=== PATIENT | male | born 1990 | race Two or more races ===

== ENCOUNTER 2023-02-13 23:55 | Outpatient (CLI) | payer BC, SELFPAY | END 2023-02-13 23:56 | disposition home or self-care (01) | PROVIDERS: Visit Provider Family Medicine | DX: R55 Syncope and collapse (principal) | CPT/HCPCS: A0425; A0427 ==

== ENCOUNTER 2023-02-14 00:34 | Emergency (ER) | payer BC, SELFPAY ==
[2023-02-14 00:41] VITALS: BP 107/87; PULSE 104; RESP 18; TEMP 36.6; O2SAT 94
--- NOTE | 2023-02-14 00:51 | ED_ITS ---
HPI - General Adult General Chief complaint: Arrhythmia/Palpitations Stated complaint: SVT Time Seen by Provider: 02/14/23 00:40 History of Present Illness HPI narrative: 32-year-old man presenting to the emergency department after having had what looks to been episode of supraventricular tachycardia diagnosed by EMS the seen and treated with adenosine. He is a long-helper/driver. This evening was finishing his cigarette had rolled over onto his right side he says and then started to feel hardening in his chest and increasing pain gesturing up to his left clavicle. This is a familiar symptom. It sounds as though has had a rhythm issue once upon a time. He notes that a physician in his home [place] in [facility] suggested that he had electrical problem. Looks to have been given bisoprolol 5 mg. He was actually seen a year ago in [place], where he currently lives, after an episode and says he was to continue I believe this bisoprolol for a week. He took 5 days only. He took those 2 remaining tabs this evening with no change in his symptoms. He was feeling more lightheaded and short of breath as he was trying to walk only a couple steps 3 steps at a time he felt he could manage. Workup in [place] after 4 days in the hospital showed him to have nothing wrong with his heart. Today he says is only the 2nd time he is heard anything about electricity in his heart. Does not drink alcohol. He says he stays well-hydrated drinking 6 L of water a day Related Data Home Medications Medication Instructions Recorded Confirmed bisoprolol fumarate .ROUTE 02/14/23 Previous Rx's Medication Instructions Recorded verapamil 120 mg tablet,extended 120 mg PO DAILY #30 tabs 02/14/23 release Allergies Allergy/AdvReac Type Severity Reaction Status Date / Time No Known Drug Allergies Allergy Verified 02/14/23 01:36 Review of Systems Status of ROS: Reports: 6 or more systems reviewed and unremarkable except as noted in History and below PFSH PFS Social History Smoking Status: Current every day smoker What tobacco products do you use: cigarettes Do you use any of these nicotine containing products: None Second hand tobacco smoke exposure: No How often do you have a drink containing alcohol: never AUDIT-C Alcohol total score: 0 Non-prescribed substance use: denies use service: No Exam Narrative: Exam Narrative: Generally pleasant. Animated. Breathing easily. Lungs are clear. Looks to be in a normal sinus rhythm. Mildly tachycardic. Regular rhythm. Smells of cigarette smoke. Extremities are without edema. He is well-perfused. Abdomen is full soft nontender. Const: Vital Signs, click to edit/add: Vital Signs - 24 hr 02/14/23 00:41 02/14/23 01:30 02/14/23 02:00 Temperature 97.8 F Pulse Rate [Right Pulse Oximeter] 104 H 103 H 95 Respiratory Rate 18 Blood Pressure [Le ft Upper Arm] 107/87 111/87 110/88 Pulse Oximetry 94 96 96 Oxygen Delivery Me thod Room Air Room Air Room Air Documenting provider has reviewed patient's vital signs: yes Course Vital Signs Vital signs: Initial Vital Signs Temperature 97.8 F 02/14/23 00:41 Temperature Source Temporal Artery Scan 02/14/23 00:41 Pulse Rate 104 H 02/14/23 00:41 Pulse Rhythm Regular 02/14/23 00:41 Respiratory Rate 18 02/14/23 00:41 Blood Pressure 107/87 02/14/23 00:41 Blood Pressure Mean 93 02/14/23 00:41 Blood Pressure Position Semi-Fowlers 02/14/23 00:41 Pulse Oximetry 94 02/14/23 00:41 Oxygen Delivery Method Room Air 02/14/23 00:41 Vital Signs Temperature 97.8 F 02/14/23 00:41 Pulse Rate 104 H 02/14/23 00:41 Respiratory Rate 18 02/14/23 00:41 Blood Pressure 107/87 02/14/23 00:41 Pulse Oximetry 94 02/14/23 00:41 Oxygen Delivery Method Room Air 02/14/23 00:41 Temperature 97.8 F 02/14/23 00:41 Pulse Rate 96 02/14/23 03:00 Respiratory Rate 18 02/14/23 00:41 Blood Pressure 107/79 02/14/23 03:00 Pulse Oximetry 96 02/14/23 03:00 Oxygen Delivery Method Room Air 02/14/23 03:00 Medications Administered Medications: Discontinued Medications Generic Name Dose Route Start Last Admin Trade Name Freq PRN Reason Stop Dose Admin Verapamil HCl 120 mg 02/14/23 02:22 02/14/23 03:14 Verapamil Hcl 240 Mg Er Tablet PO 02/14/23 02:23 120 mg ONCE ONE Administration Verapamil HCl 120 mg 02/14/23 02:40 02/14/23 03:16 Verapamil Sr 120 Mg Cap PO 02/14/23 02:41 Not Given ONCE ONE Verapamil HCl 120 mg 02/14/23 02:41 02/14/23 03:15 Verapamil Hcl 240 Mg Er Tablet PO 02/14/23 02:42 Not Given ONCE ONE Verapamil HCl 120 mg 02/14/23 09:00 02/14/23 03:15 Verapamil Hcl 240 Mg Er Tablet PO 02/17/23 09:00 Not Given DAILY KENNY Medical Decision Making MDM Narrative Medical decision making narrative: Seems well at this time. Unclear why not on a chronic beta-baldemar. I think there may have been some misunderstanding or miscommunication. Drinking the amount of water that he is describing might contribute to electrolyte abnormality, hyponatremia. Should check labs. Anemia or hypothyroid or hyperthyroid could also contribute. I did discuss this case with Cardiology on-call. Recommendations would be to go to calcium channel baldemar; verapamil. Initiating a dose here in the emergency department. Ultimately had to prescribe stop gap medication from supply. Also given prescription. Monitored without further event in the ER. Labs are reassuring. See patient discharge plan Lab Data Lab results reviewed: Yes I reviewed the patient's lab results Labs: Lab Results 02/14/23 Range/Units 01:23 Hgb 15.6 (13.5-17.5) gm/dL Sodium 140 (135-149) mmol/L Potassium 4.5 (3.6-5.1) mmol/L Chloride 104 (96-114) mmol/L Carbon Dioxide 24 (20-32) mmol/L Anion Gap 12 (7-15) mEq/L BUN 11 (5-24) mg/dL Creatinine 0.9 (0.5-1.5) mg/dL Estimated GFR 118 ml/min Glucose 127 H (60-115) mg/dL Calcium 9.0 (8.4-10.6) mg/dL Magnesium 1.8 (1.5-2.6) mg/dL TSH 3.510 (0.270-4.20) uIU/mL ECG Data Attestation: I personally reviewed and interpreted this ECG as follows: (Sinus tachycardia with a rate of 104. Tracings from EMS reviewed showing supraventricular tachycardia rate up to 171) Discharge Plan Discharge Clinical Impression: Supraventricular tachycardia Patient Disposition: Home, Self-Care Condition: Improved Additional Instructions: Do best to quit smoking, please. Instead of the bisoprolol, we would like you to start verapamil and take a dose every day to control episodes of rapid heart rate. This is temporary treatment. As discussed however, recommendations are to see Cardiology, specifically electrophysiology (a subspecialty of Cardiology) to be considered for a procedure called ablation. This is probably the best/most effective treatment for somebody of your age and occupation. Take copies of these EKGs to your follow-up appointment. If you have an episode of rapid heart rate, it can be helpful to try something called vagal maneuvers. Vagal maneuvers are techniques that can affect the heart is electrical system by triggering response in the vagus nerve. You might be able to break an attack of supraventricular tachycardia by coughing, bearing down as if having a bowel mov ement, forcefully breathing out against a closed mouth and nose, putting ice cold water or cold towel on your face, gagging. Continue to stay well-hydrated. We had discussed constipation as a potential medication side effect. Given what you told me, you might benefit from taking Dulcolax or MiraLax equivalent in liquid a couple of times daily. Prescriptions: New verapamil 120 mg tablet extended release 120 mg PO DAILY Qty: 30 0RF No Action bisoprolol fumarate .ROUTE Stand Alone Forms: [employer] Info Instructions
[2023-02-14 01:30] VITALS: BP 111/87; PULSE 103; O2SAT 96
[2023-02-14 01:36] LABS: Hemoglobin* 15.6 gm/dL (13.5-17.5)
[2023-02-14 01:47] LABS: Chloride* 104 mmol/L (96-114); Potassium* 4.5 mmol/L (3.6-5.1); Sodium* 140 mmol/L (135-149)
[2023-02-14 01:50] LABS: Anion Gap 12 mEq/L (7-15); Blood Urea Nitrogen* 11 mg/dL (5-24); Carbon Dioxide* 24 mmol/L (20-32); Creatinine* 0.9 mg/dL (0.5-1.5); Estimated Glomerular Filt Rate 118 ml/min; Glucose* 127 mg/dL (60-115)
[2023-02-14 01:51] LABS: Magnesium* 1.8 mg/dL (1.5-2.6)
[2023-02-14 02:00] VITALS: BP 110/88; PULSE 95; O2SAT 96
[2023-02-14 02:30] VITALS: BP 104/80; PULSE 95; O2SAT 95
[2023-02-14 03:00] VITALS: BP 107/79; PULSE 96; O2SAT 96
[2023-02-14] MEDS: VERAPAMIL HCL 240 MG ER TABLET 120 MG PO (03:14)
--- NOTE | 2023-02-14 03:20 | ED.NURSE ---
Patient dispensed 360mg (120mg each half-tab) of verapamil for use at home per MD order.
--- NOTE | 2023-04-17 15:36 | ED.NURSE ---
Patient is calling because his pharmacy is unable to fill his prescription. He was seen by Dr. Montemayor on 02/14/23, prescribed Verapamil XR 120mg, #30 R0, take one tablet daily. Patient notes the pharmacy needs more provider information. I've spoken with the pharmacist at [facility] pharmacy in [place], [place] (Al Delgado, P [phone]) and provided prescription and provider information as requested. No further questions/concerns.
== END 2023-02-14 03:21 | disposition home or self-care (01) ==
PROVIDERS: Emergency Provider Family Medicine
DX: I47.10 Supraventricular tachycardia, unspecified (principal)
CPT/HCPCS: 36415; 80048; 83735; 84443; 85018; 93005; 95992; 99284